=== PATIENT | female | born 1940 | race Caucasian/White ===

== ENCOUNTER → 2019-04-17 14:03 | Outpatient (BNVA) | payer MEDICARE, SELFPAY | PROVIDERS: Family Provider Nurse Practitioner Family; PCP Nurse Practitioner Family; Visit Provider Nurse Practitioner | DX: F41.1 Generalized anxiety disorder (principal) | CPT/HCPCS: 99213 ==

== ENCOUNTER 2019-06-21 19:52 | Outpatient (CLI) | payer MEDICARE, SELFPAY ==
[2019-06-21 20:33] LABS: Creatinine Urine, Random 125 mg/dL (28-217); Microalbum Creatinine Ratio Ur 16 mg/dL (0-20); Microalbumin Random Urine 2 ug/dL (0-20)
[2019-06-21 21:27] LABS: Basophils # 0.1 10^3/uL (0.0-0.1); Basophils % 0.7 %; Eosinophils # 0.1 10^3/uL (0.0-0.8); Eosinophils % 1.3 %; Hematocrit 36.5 % (37.0-47.0); Hemoglobin 11.4 g/dL (11.5-15.3); Lymphocytes # 2.6 10^3/uL (0.8-4.8); Lymphocytes % 35.9 %; Mean Corpuscular HGB Conc 31.2 g/dL (30.0-36.0); Mean Corpuscular Hemoglobin 30.1 pg (28.0-34.0); Mean Corpuscular Volume 96.3 fL (81-99); Mean Platelet Volume 11.6 fL (7.4-10.4); Monocytes # 0.5 10^3/uL (0.2-0.9); Monocytes % 6.4 %; Neutrophils % 55.4 %; Nucleated Red Blood Cells % 0 %; Platelet Count 367 10^3/cmm (130-400); Red Blood Count 3.79 10^6/uL (4.1-5.3); Red Cell Distribution Width 12.8 % (12.1-15.1); White Blood Count 7.2 10^3/uL (4.0-10.0)
[2019-06-21 21:53] LABS: Estmated Average Glucose 189; Hemoglobin A1C 8.2 % (4.0-6.0)
[2019-06-21 23:50] LABS: Alanine Aminotransferase 15 U/L (0-33); Albumin Level 4.5 g/dL (3.5-5.2); Alkaline Phosphatase 52 IU/L (35-105); Aspartate Amino Transferase 15 U/L (0-32); Blood Urea Nitrogen 25 mg/dL (8-23); Calcium 9.8 mg/dL (8.5-10.5); Carbon Dioxide 27 mmol/L (22-29); Chloride 101 mmol/L (98-107); Chol HDL Ratio 2.81 mg/dL (0.0-4.40); Cholesterol 152 mg/dL (0-200); Globulin 2.2 g/dL (1.3-4.6); Glucose 167 mg/dL (65-115); HDL Cholesterol 54 mg/dL (60-100); LDL Cholesterol Calculated 81 mg/dL (50-129); Osmolality Calculated 293 mOsm/kg (285-295); Sodium 141 mmol/L (136-145); Thyroid Stimulating Hormone 4.12 uIU/mL (0.27-4.20); Total Bilirubin 0.4 mg/dL (0.15-1.2); Total Protein 6.7 g/dL (6.6-8.7); Triglycerides 83 mg/dL (0-150)
[2019-06-22 02:16] LABS: Add Urine Microscopic? YES; Bacteria Urine 3+; Bilirubin Urine Neg (NEGATIVE); Blood Urine Neg (Negative); Glucose Urine UA Norm (Normal); Ketones Urine Negative (Negative); Leukocyte Esterase Urine Negative (Negative); Nitrate Urine Positive (Negative); Protein Urine Neg (Negative); RBC Urine 0-4 /hpf (0-2); Specific Gravity, Urine 1.015 (1.005-1.030); Squamous Epithelial Cell Urine 0-4 (0-5); Urine Appearance Clear (CLEAR); Urine Color Yellow (Yellow); Urobilinogen Urine Norm (Negative); WBC Urine 0-4 /hpf (0-5); pH Urine 5 (5-7)
[2019-06-22 02:17] LABS: Add Urine Culture? Yes
== END 2019-06-21 19:53 | disposition home or self-care (01) ==
LOC: LAB 19:54
PROVIDERS: Family Provider Nurse Practitioner Family; PCP Nurse Practitioner Family; Visit Provider Nurse Practitioner Family
DX: E11.9 Type 2 diabetes mellitus without complications (principal)
CPT/HCPCS: 80053; 80061; 81001; 82044; 83036; 84443; 85025

== ENCOUNTER 2019-09-19 15:12 | Outpatient (CLI) | payer MEDICARE, SELFPAY ==
[2019-09-19 19:21] LABS: Anion Gap 12.7 (5-19); Blood Urea Nitrogen 28 mg/dL (8-23); Calcium 9.3 mg/dL (8.5-10.5); Carbon Dioxide 25 mmol/L (22-29); Chloride 104 mmol/L (98-107); Glucose 88 mg/dL (65-115); Osmolality Calculated 280 mOsm/kg (285-295); Potassium 4.7 mmol/L (3.5-5.1); Sodium 137 mmol/L (136-145)
[2019-09-20 04:14] LABS: Estmated Average Glucose 157; Hemoglobin A1C 7.1 % (4.0-6.0)
== END 2019-09-19 15:13 | disposition home or self-care (01) ==
LOC: LAB 15:18
PROVIDERS: Family Provider Nurse Practitioner Family; PCP Nurse Practitioner Family; Visit Provider Nurse Practitioner Family
DX: E11.9 Type 2 diabetes mellitus without complications (principal)
CPT/HCPCS: 80048; 83036

== ENCOUNTER → 2019-10-17 10:49 | Outpatient (BNVA) | payer MEDICARE, SELFPAY | PROVIDERS: Family Provider Nurse Practitioner Family; PCP Nurse Practitioner Family; Visit Provider Nurse Practitioner | DX: F41.1 Generalized anxiety disorder (principal) | CPT/HCPCS: 99213 ==

== ENCOUNTER → 2020-04-10 08:12 | Outpatient (BNVA) | payer MEDICARE, SELFPAY | PROVIDERS: Family Provider Nurse Practitioner Family; PCP Nurse Practitioner Family; Visit Provider Nurse Practitioner | DX: F41.1 Generalized anxiety disorder (principal); F33.0 Major depressive disorder, recurrent, mild | CPT/HCPCS: 99214 ==

== ENCOUNTER → 2020-11-05 07:24 | Outpatient (BNVA) | payer MEDICARE, SELFPAY | PROVIDERS: Family Provider Nurse Practitioner Family; PCP Nurse Practitioner Family; Visit Provider Nurse Practitioner | DX: F33.0 Major depressive disorder, recurrent, mild (principal); F41.1 Generalized anxiety disorder | CPT/HCPCS: 99214 ==

== ENCOUNTER → 2021-04-29 14:26 | Outpatient (BNVA) | payer MEDICARE, SELFPAY | PROVIDERS: Visit Provider Nurse Practitioner | DX: F33.0 Major depressive disorder, recurrent, mild (principal); F41.1 Generalized anxiety disorder | CPT/HCPCS: 99214 ==

== ENCOUNTER 2022-09-18 13:28 | Emergency (ER) | payer MEDICARE, SELFPAY ==
--- NOTE | 2022-09-18 13:45 | ECG_ITS ---
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 Measurements Intervals [place] Rate: 77 P: -15 VT: 284 QRS: 8 QRSD: 86 T: 53 QT: 383 QTc: 433 Interpretive Statements ELECTRONIC ATRIAL PACEMAKER ABNORMAL RHYTHM ECG No previous ECG available for comparison Electronically Signed On 09-18-2022 22:56:26 CDT by Chastity Aranda M.D. [id number]
[2022-09-18 13:46] VITALS: BP 140/79; PULSE 75; RESP 14; O2SAT 98
--- NOTE | 2022-09-18 14:06 | ED_ITS ---
HPI - Chest Pain General: Chief Complaint: Chest Pain Stated Complaint: weakness, n/v Time Seen by Provider: 09/18/22 13:45 Source: patient Mode of arrival: ambulatory Limitations: no limitations History of Present Illness: 82-year-old female states that 2 hours ago she had a very short episode of chest pain states she had felt lightheaded and vomited she never passed out but felt like she was going to states the symptoms have since completely resolved and she has no complaints at this time. She denies any headache denies any shortness of breath denies any abdominal pain. Associated symptoms: Reports nausea and vomiting; Deny abdominal pain, dyspnea or fever(s) Review of Systems Const: Denies: fever(s), chills, body aches or change in appetite ENMT: Denies: throat pain or dental pain Card: Reports: chest pain Resp: Denies: dyspnea GI: Reports: nausea and vomiting; Denies: abdominal pain or diarrhea Musc: Denies: neck pain or back pain Skin/Breast: Denies: rash Neuro: Denies: headache(s) PFSH ED PFSH: Medical History Anxiety Diabetes Dyslipidemia Generalized anxiety disorder Major depressive disorder, recurrent, mild Psychiatric care Syncope Social History Smoking and tobacco status: never smoked Alcohol intake: never Substance/Drug Use: never Physical Exam Const: COMMON NORMALS: no acute distress, patient oriented x3 and healthy appearing HENMT: COMMON NORMALS: normocephalic and atraumatic HEAD & SCALP: normocephalic and atraumatic Eye: COMMON NORMALS: Equal, round and reactive pupils present and EOMs intact bilaterally PUPIL: Yes Equal, round and reactive pupils present Neck/C-Spine: COMMON NORMALS: full ROM and supple Chest: COMMONS NORMALS: normal inspection of the chest and normal palpation of entire chest wall Resp: COMMON NORMALS: normal respiratory effort, No retractions, No use of accessory muscles and clear to auscultation bilaterally AUSCULTATION: clear to auscultation bilaterally Cardio: COMMON NORMALS: regular rate, regular rhythm and No murmurs present (Cardio) RATE: regular rate RHYTHM: regular rhythm GI: COMMON NORMALS: Normal to inspection, nondistended, normoactive bowel sounds present, Soft to palpation, non-tender and no masses PALPATION: Yes Soft to palpation Extremity: COMMON NORMALS: normal to inspection and full ROM Neuro: COMMON NORMALS: patient oriented x3, moves all extremities and no focal motor deficits Psych: COMMON NORMALS: mental status grossly normal, Normal thought process present and cooperative THOUGHT PROCESS: Normal thought process present Skin: COMMON NORMALS: no rashes or lesions noted and no wounds GENERAL SKIN EXAM: no rashes or lesions noted Course Vital Signs: Vital signs: Vital Signs Pulse Rate 70 09/18/22 16:00 Respiratory Rate 14 09/18/22 13:46 Blood Pressure 145/78 09/18/22 16:00 Pulse Oximetry 98 09/18/22 16:00 Oxygen Delivery Me thod Room Air 09/18/22 16:00 MDM - Chest Pain Medical Decision Making 82-year-old female presented here with chest pain pains atypical in nature she has been pain-free here 2-hour troponin shows no changes no signs of acute coronary syndrome no sign of dissection or pulm embolism she is stable for discharge she is to follow-up with PCP and return if worsening. Medical Records I reviewed the patient's medical records. Lab Data I reviewed the patient's lab results. 09/18/22 14:00 09/18/22 14:00 Radiology Impressions Chest X-Ray 09/18/22 14:21 Impression: 1. Negative for acute cardiopulmonary disease. 2. Chronic elevation left diaphragm Laboratory Results WBC 7.2 10^3/uL (4.0-10.0) 09/18/22 14:00 RBC 4.34 10^6/uL (4.1-5.3) 09/18/22 14:00 Hgb 12.5 g/dL (11.5-15.3) 09/18/22 14:00 Hct 40.8 % (37.0-47.0) 09/18/22 14:00 MCV 94.0 fl (81-99) 09/18/22 14:00 MCH 28.8 pg (28.0-34.0) 09/18/22 14:00 MCHC 30.6 g/dL (30.0-36.0) 09/18/22 14:00 RDW 13.9 % (12.1-15.1) 09/18/22 14:00 Plt Count 441 10^3/cmm (130-400) H 09/18/22 14:00 MPV 10.7 fL (7.4-10.4) H 09/18/22 14:00 Neut % (Auto) 52.9 % 09/18/22 14:00 Lymph % (Auto) 38.7 % 09/18/22 14:00 Esmeralda % (Auto) 5.8 % 09/18/22 14:00 Eos % (Auto) 1.2 % 09/18/22 14:00 Baso % (Auto) 1.0 % 09/18/22 14:00 Neut # (Auto) 3.81 10^3/uL (1.8-7.7) 09/18/22 14:00 Lymph # (Auto) 2.8 10^3/uL (0.8-4.8) 09/18/22 14:00 Esmeralda # (Auto) 0.4 10^3/uL (0.2-0.9) 09/18/22 14:00 Eos # (Auto) 0.1 10^3/uL (0.0-0.8) 09/18/22 14:00 Baso # (Auto) 0.1 10^3/uL (0.0-0.1) 09/18/22 14:00 Nucleated RBC % (auto) 0 % 09/18/22 14:00 Nucleated RBCs # 0.0 /100WBC 09/18/22 14:00 PT 13.30 SECONDS (12.1-14.9) 09/18/22 14:00 INR 0.99 (0.8-1.2) 09/18/22 14:00 Sodium 138 mmol/L (136-145) 09/18/22 14:00 Potassium 5.3 mmol/L (3.5-5.1) H 09/18/22 14:00 Chloride 102 mmol/L (98-107) 09/18/22 14:00 Carbon Dioxide 20 mmol/L (22-29) L 09/18/22 14:00 Anion Gap 21.3 (5-19) H 09/18/22 14:00 BUN 32 mg/dL (8-23) H 09/18/22 14:00 Creatinine 1.5 mg/dL (0.5-0.9) H 09/18/22 14:00 GFR Calculation Not Reportable 09/18/22 14:00 Glucose 231 mg/dL (65-115) H 09/18/22 14:00 Calculated Osmolality 300 mOsm/kg (285-295) H 09/18/22 14:00 Calcium 9.9 mg/dL (8.5-10.5) 09/18/22 14:00 Total Bilirubin 0.4 mg/dL (0.15-1.2) 09/18/22 14:00 AST 14 U/L (0-32) 09/18/22 14:00 ALT 12 U/L (0-33) 09/18/22 14:00 Alkaline Phosphatase 60 U/L (35-105) 09/18/22 14:00 Troponin T Baseline 67 ng/L (0-10) H 09/18/22 14:00 Troponin T 120 Minute 56.72 ng/L (0-10) H 09/18/22 15:54 Delta Troponin T -10.28 ABS# (0-10) L 09/18/22 15:54 Total Protein 6.8 g/dL (6.6-8.7) 09/18/22 14:00 Albumin 4.4 g/dL (3.5-5.2) 09/18/22 14:00 Globulin 2.4 g/dL (1.3-4.6) 09/18/22 14:00 EKG Data EKG 1: I personally reviewed and interpreted this EKG as follows: EKG interpretation date: 09/18/22 EKG interpretation time: 14:04 Interpretation: paced hr [address] or t wave abnormalities qrs 86 qtc 414 EKG 2: I personally reviewed and interpreted this EKG as follows: EKG interpretation date: 09/18/22 EKG interpretation time: 16:07 Interpretation: nsr hr [address] or t wave abnormalities qrs 93 qtc 416 Discharge Plan Discharge Patient Disposition: Home Clinical Impression: Chest pain Condition: Stable Prescriptions: No Action pravastatin 20 mg tablet 20 mg PO DAILY calcium carbonate-vitamin D3 [Calcium 600 with Vitamin D3] 600 mg(1,500mg) - 500 unit capsule 1 cap PO DAILY metformin 1,000 mg tablet 1,000 mg PO BID lisinopril 20 mg tablet 20 mg PO DAILY venlafaxine [Effexor XR] 37.5 mg capsule,extended release 24hr 37.5 mg PO .every other day Qty: 15 2RF venlafaxine [Effexor XR] 75 mg capsule,extended release 24hr 75 mg PO .every other day Qty: 15 2RF Jardiance 10 mg tablet 10 mg PO DAILY Discharge Orders: Discharge ED (Routine); Ordered 09/18/22 Ordered By: Sven Agrawal Discharge Diet: Advance as tolerated Discharge Activity: Resume usual activity Patient Instructions: Chest Pain (ED) Coding Level of Care Code ED 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
[2022-09-18 14:14] VITALS: BP 131/81; PULSE 75; O2SAT 99
--- NOTE | 2022-09-18 14:21 | XR_ITS ---
WS: [id number] Portable AP upright chest, 09/18/2022 Clinical Data: cp Comparison: Two-view chest, 12/16/2017 Findings: No nodules, masses or effusions are seen. The heart is normal. The pulmonary vascularity is not increased. No pneumonia or pneumothorax is seen. Left diaphragm remains elevated and unchanged. XR/XR chest 1V portable [id number] Impression: 1. Negative for acute cardiopulmonary disease. 2. Chronic elevation left diaphragm
[2022-09-18 14:24] LABS: Basophils # 0.1 10^3/uL (0.0-0.1); Eosinophils # 0.1 10^3/uL (0.0-0.8); Eosinophils % 1.2 %; Hematocrit 40.8 % (37.0-47.0); Hemoglobin 12.5 g/dL (11.5-15.3); Lymphocytes # 2.8 10^3/uL (0.8-4.8); Lymphocytes % 38.7 %; Mean Corpuscular HGB Conc 30.6 g/dL (30.0-36.0); Mean Corpuscular Hemoglobin 28.8 pg (28.0-34.0); Mean Platelet Volume 10.7 fL (7.4-10.4); Monocytes # 0.4 10^3/uL (0.2-0.9); Monocytes % 5.8 %; Neutrophils # 3.81 10^3/uL (1.8-7.7); Neutrophils % 52.9 %; Nucleated Red Blood Cells % 0 %; Platelet Count 441 10^3/cmm (130-400); Red Blood Count 4.34 10^6/uL (4.1-5.3); Red Cell Distribution Width 13.9 % (12.1-15.1); White Blood Count 7.2 10^3/uL (4.0-10.0)
[2022-09-18 14:57] LABS: INR 0.99 (0.8-1.2)
[2022-09-18 15:00] VITALS: BP 124/72; PULSE 72; O2SAT 99
[2022-09-18 15:09] LABS: Alanine Aminotransferase 12 U/L (0-33); Albumin Level 4.4 g/dL (3.5-5.2); Alkaline Phosphatase 60 U/L (35-105); Anion Gap 21.3 (5-19); Aspartate Amino Transferase 14 U/L (0-32); Blood Urea Nitrogen 32 mg/dL (8-23); Calcium 9.9 mg/dL (8.5-10.5); Carbon Dioxide 20 mmol/L (22-29); Chloride 102 mmol/L (98-107); Globulin 2.4 g/dL (1.3-4.6); Glucose 231 mg/dL (65-115); Osmolality Calculated 300 mOsm/kg (285-295); Potassium 5.3 mmol/L (3.5-5.1); Sodium 138 mmol/L (136-145); Total Bilirubin 0.4 mg/dL (0.15-1.2); Total Protein 6.8 g/dL (6.6-8.7)
[2022-09-18 15:10] LABS: Troponin(5th) Baseline 67 ng/L (0-10)
[2022-09-18 16:00] VITALS: BP 145/78; PULSE 70; O2SAT 98
--- NOTE | 2022-09-18 16:07 | ECG_ITS ---
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 Measurements Intervals [place] Rate: 68 P: 49 [place]: 129 QRS: 18 QRSD: 93 T: 46 QT: 399 QTc: 425 Interpretive Statements SINUS RHYTHM Compared to ECG 09/18/2022 14:04:32 Atrial-paced complex(es) or rhythm no longer present Electronically Signed On 09-19-2022 13:12:02 CDT by Kyle Saldivar M.D. [id number]
[2022-09-18 16:22] LABS: Troponin 5 2HR 56.72 ng/L (0-10)
== END 2022-09-18 16:50 | disposition home or self-care (01) ==
PROVIDERS: Emergency Provider Emergency Medicine; PCP Nurse Practitioner Family
DX: R07.9 Chest pain, unspecified (principal); Z79.84 Long term (current) use of oral hypoglycemic drugs; E11.9 Type 2 diabetes mellitus without complications; E78.5 Hyperlipidemia, unspecified
CPT/HCPCS: 36415; 71045; 80053; 84484; 85025; 85610; 93005; 99285